=== PATIENT | female | born 1935 | race Caucasian/White ===

== ENCOUNTER 2016-05-15 18:29 | Emergency (ER) | payer MEDICARE, OTHER ==
[~2016-05-15] VITALS: Ht 167.6 cm; Wt 55.0 kg
[2016-05-15 19:38] LABS: HEMATOCRIT 33.5 % (37.0-47.0); HEMOGLOBIN 11.6 g/dl (12.0-16.0); IMMATURE GRANULOCYTES 1.1 % (0.0-1.0); MEAN CELL VOLUME 89.6 fL CALC (80.0-100.0); MEAN CORPUSCULAR HGB CONC 34.6 g/L CALC (32.0-36.0); NEUT# 9.28 thou/uL (2.00-7.15); RED BLOOD COUNT 3.74 mill/uL (4.20-5.60); RED CELL DISTRI WIDTH 12.3 % (11.5-15.5)
[2016-05-15 19:44] LABS: INTERNATIONAL NORMALIZED RATIO 0.9 RATIO (0.7-1.3); PROTHROMBIN TIME 10.1 SECONDS (9.0-12.5)
[2016-05-15 20:00] LABS: URINE BILIRUBIN - DIPSTICK NEGATIVE (NEGATIVE); URINE BLOOD DIPSTICK NEGATIVE (NEGATIVE); URINE CLARITY CLEAR; URINE COLOR YELLOW; URINE GLUCOSE - DIPSTICK NEGATIVE (NEGATIVE); URINE KETONE NEGATIVE (NEGATIVE); URINE LEUK ESTERASE TRACE (NEGATIVE); URINE NITRITE - DIPSTICK NEGATIVE (Negative); URINE PH 5.5 (4.5-8.0); URINE PROTEIN - DIPSTICK NEGATIVE (NEG-TRACE); URINE UROBILINOGEN - DIPSTICK 0.2 E.U./dL (0.2)
[2016-05-15] MEDS ORDERED: AMLODIPINE5 MG PO (20:00)
[2016-05-15] MEDS ORDERED: CALCIUM500 M3 PO (20:01)
[2016-05-15] MEDS ORDERED: ASPIRIN325 MG PO (20:01)
[2016-05-15] MEDS ORDERED: MINIVELLE0.05 MG (20:02)
[2016-05-15] MEDS ORDERED: TRAMADOL HCL50 MG PO (20:02)
[2016-05-15] MEDS ORDERED: CITRUCEL500 MG PO (20:03)
[2016-05-15] MEDS ORDERED: L-LYSINE ACE500 MG PO (20:03)
[2016-05-15] MEDS ORDERED: PROGESTERONE100 MG PO (20:04)
[2016-05-15] MEDS ORDERED: SYMBICORT1 AE1 IN (20:04)
[2016-05-15] MEDS ORDERED: PRED FORTE1 % OP (20:04)
[2016-05-15] MEDS ORDERED: PROAIR HFA IN (20:05)
[2016-05-15] MEDS ORDERED: NEXIUM40 M1 PO (20:06)
[2016-05-15] MEDS ORDERED: ATORVASTATIN CA40 MG PO (20:06)
[2016-05-15] MEDS ORDERED: MULTAQ400 MG PO (20:07)
[2016-05-15] MEDS ORDERED: VALSARTAN40 MG (20:07)
[2016-05-15] MEDS ORDERED: OXYCONTIN10 MG PO (20:08)
[2016-05-15] MEDS ORDERED: ALPRAZOLAM0.25 MG PO (20:10)
[2016-05-15 20:20] LABS: ALBUMIN 4.2 g/dL (3.2-5.0); ALKALINE PHOSPHATASE 72 u/l (38-126); ANION GAP 15 (6-22 (CALC)); BILIRUBIN, TOTAL 0.3 mg/dL (0.0-1.4); BUN 9 mg/dL (8-23); BUN/CREATININE RATIO 10 (12-20 (CALC)); CALCIUM 9.3 mg/dL (8.4-10.2); CARBON DIOXIDE 26 mmol/l (22-30); CHLORIDE 101 mmol/l (95-108); CREATININE 0.9 mg/dL (0.5-1.0); GFR 60 ML/MIN (>=60 (CALC)); GFR FOR AFR.AMER. > 60 ML/MIN (>=60 (CALC)); GLUCOSE 90 mg/dL (82-115); POTASSIUM 3.5 mmol/l (3.5-5.1); SGOT/AST 37 u/l (9-36); SGPT/ALT 38 u/l (11-66); SODIUM 139 mmol/l (137-146); TOTAL PROTEIN 7.6 g/dL (6.3-8.2)
[2016-05-15 21:17] VITALS: BP 182/79
== END 2016-05-15 21:17 ==
LOC: ED 18:29
PROVIDERS: Emergency Medicine
PROC: 0T9B70Z Drainage of Bladder with Drainage Device, Via Natural or Artificial Opening (ICD-10-PCS; principal; 2016-05-15)
DX: S72.002A Fracture of unspecified part of neck of left femur, initial encounter for closed fracture (principal); W01.0XXA Fall on same level from slipping, tripping and stumbling without subsequent striking against object, initial encounter; Y93.E8 Activity, other personal hygiene; Y92.008 Other place in unspecified non-institutional (private) residence as the place of occurrence of the external cause; I10 Essential (primary) hypertension; I48.91 Unspecified atrial fibrillation; R22.32 Localized swelling, mass and lump, left upper limb

== ENCOUNTER 2016-12-16 18:17 | Inpatient (IN) | payer MEDICARE, OTHER ==
[~2016-12-16] VITALS: Ht 167.6 cm; Wt 71.0 kg
[2016-12-16] VITALS (12 sets, daily range): BP systolic 103–156; BP diastolic 43–99
[~2016-12-16 18:17] MED LIST: ALPRAZOLAM0.25 MG PO; AMLODIPINE5 MG PO; ASPIRIN325 MG PO; ATORVASTATIN CA40 MG PO; CALCIUM500 M3 PO; CITRUCEL500 MG PO; L-LYSINE ACE500 MG PO; MINIVELLE0.05 MG; MULTAQ400 MG PO; NEXIUM40 M1 PO; OXYCONTIN10 MG PO; PRED FORTE1 % OS; PROAIR HFA IN; PROGESTERONE100 MG PO; SYMBICORT1 AE1 IN; TRAMADOL HCL50 MG PO; VALSARTAN40 MG PO
[2016-12-16] MEDS ORDERED: XARELTO10 MG PO (18:46)
[2016-12-16] MEDS ORDERED: DALIRESP500 MCG PO (18:47)
[2016-12-16] MEDS ORDERED: DUONEB IN (18:48)
[2016-12-16] MEDS ORDERED: CIPROFLOXACN0.3 % OU (18:50)
[2016-12-16] MEDS ORDERED: MULTI VIT PO (18:53)
[2016-12-16 18:55] LABS: HEMATOCRIT 30.7 % (37.0-47.0); HEMOGLOBIN 13.4 g/dl (12.0-16.0); IMMATURE GRANULOCYTES 0.4 % (0.0-1.0); MEAN CELL VOLUME 96.5 fL CALC (80.0-100.0); MEAN CORPUSCULAR HGB 42.1 pG CALC (26.0-32.0); MEAN CORPUSCULAR HGB CONC 43.6 g/L CALC (32.0-36.0); PLATELET COUNT 346 thou/uL (130-400); RED BLOOD COUNT 3.18 mill/uL (4.20-5.60); RED CELL DISTRI WIDTH 12.6 % (11.5-15.5)
[2016-12-16] MEDS ORDERED: VITAMIN C500 MG PO (18:57)
[2016-12-16] MEDS ORDERED: TYLENOL325 MG PO (18:58)
[2016-12-16] MEDS ORDERED: XALATAN0.005 % OU (19:00)
[2016-12-16 19:07] LABS: MANUAL DIFFERENTIAL YES
[2016-12-16 19:35] LABS: BAND 7 % (0-8)
[2016-12-16 19:45] LABS: URINE BILIRUBIN - DIPSTICK NEGATIVE (NEGATIVE); URINE BLOOD DIPSTICK TRACE-INTACT (NEGATIVE); URINE COLOR YELLOW; URINE GLUCOSE - DIPSTICK NEGATIVE (NEGATIVE); URINE KETONE NEGATIVE (NEGATIVE); URINE LEUK ESTERASE NEGATIVE (NEGATIVE); URINE NITRITE - DIPSTICK NEGATIVE (Negative); URINE PH 5.5 (4.5-8.0); URINE PROTEIN - DIPSTICK 30 mg/dL (NEG-TRACE); URINE UROBILINOGEN - DIPSTICK 0.2 E.U./dL (0.2)
[2016-12-16 19:49] LABS: ALBUMIN 4.5 g/dL (3.2-5.0); ALKALINE PHOSPHATASE 77 u/l (38-126); ANION GAP 17 (6-22 (CALC)); BILIRUBIN, TOTAL 0.6 mg/dL (0.0-1.4); BUN 10 mg/dL (8-23); BUN/CREATININE RATIO 14 (12-20 (CALC)); CALCIUM 9.8 mg/dL (8.4-10.2); CARBON DIOXIDE 26 mmol/l (22-30); CHLORIDE 102 mmol/l (95-108); CREATININE 0.7 mg/dL (0.5-1.0); GFR > 60 ML/MIN (>=60 (CALC)); GFR FOR AFR.AMER. > 60 ML/MIN (>=60 (CALC)); GLUCOSE 105 mg/dL (82-115); POTASSIUM 3.5 mmol/l (3.5-5.1); SGOT/AST 41 u/l (9-36); SGPT/ALT 42 u/l (11-66); SODIUM 142 mmol/l (137-146); TOTAL PROTEIN 8.1 g/dL (6.3-8.2)
[2016-12-16 19:57] LABS: MYOGLOBIN 78 ng/mL (0 - 62)
[2016-12-16 20:22] LABS: URINE CLARITY CLEAR
[2016-12-16 20:24] LABS: URINE MUCUS FEW hpf (NONE-FEW); URINE SQUAMOUS EPITHELIAL CELL FEW EPI/hpf (0-FEW)
[2016-12-17] VITALS (29 sets, daily range): BP systolic 81–164; BP diastolic 46–98
[2016-12-18] VITALS (14 sets, daily range): BP systolic 85–105; BP diastolic 42–55
[2016-12-18 05:16] LABS: HEMATOCRIT 33.8 % (37.0-47.0); HEMOGLOBIN 11.5 g/dl (12.0-16.0); IMMATURE GRANULOCYTES 0.8 % (0.0-1.0); MEAN CELL VOLUME 90.4 fL CALC (80.0-100.0); MEAN CORPUSCULAR HGB 30.7 pG CALC (26.0-32.0); NEUT# 26.25 thou/uL (2.00-7.15); RED BLOOD COUNT 3.74 mill/uL (4.20-5.60); RED CELL DISTRI WIDTH 12.5 % (11.5-15.5)
[2016-12-18 05:29] LABS: ANION GAP 11 (6-22 (CALC)); BUN 24 mg/dL (8-23); BUN/CREATININE RATIO 27 (12-20 (CALC)); CALCIUM 9.4 mg/dL (8.4-10.2); CARBON DIOXIDE 24 mmol/l (22-30); CHLORIDE 98 mmol/l (95-108); CREATININE 0.9 mg/dL (0.5-1.0); GFR 60 ML/MIN (>=60 (CALC)); GFR FOR AFR.AMER. > 60 ML/MIN (>=60 (CALC)); GLUCOSE 143 mg/dL (82-115); POTASSIUM 3.4 mmol/l (3.5-5.1)
[2016-12-18 05:44] LABS: SODIUM 130 mmol/l (137-146)
[2016-12-19] VITALS (14 sets, daily range): BP systolic 97–136; BP diastolic 50–76
[2016-12-19 05:05] LABS: HEMATOCRIT 36.8 % (37.0-47.0); HEMOGLOBIN 12.8 g/dl (12.0-16.0); IMMATURE GRANULOCYTES 0.9 % (0.0-1.0); MEAN CELL VOLUME 94.8 fL CALC (80.0-100.0); MEAN CORPUSCULAR HGB CONC 34.8 g/L CALC (32.0-36.0); PLATELET COUNT 331 thou/uL (130-400); RED BLOOD COUNT 3.88 mill/uL (4.20-5.60)
[2016-12-19 05:10] LABS: MANUAL DIFFERENTIAL YES
[2016-12-19 05:23] LABS: ANION GAP 15 (6-22 (CALC)); BUN 21 mg/dL (8-23); BUN/CREATININE RATIO 27 (12-20 (CALC)); CARBON DIOXIDE 24 mmol/l (22-30); CHLORIDE 105 mmol/l (95-108); CREATININE 0.8 mg/dL (0.5-1.0); GFR > 60 ML/MIN (>=60 (CALC)); GFR FOR AFR.AMER. > 60 ML/MIN (>=60 (CALC)); GLUCOSE 139 mg/dL (82-115); POTASSIUM 3.8 mmol/l (3.5-5.1); SODIUM 139 mmol/l (137-146)
[2016-12-19 08:40] LABS: MAGNESIUM 2.1 mg/dL (1.6-2.3)
== END 2016-12-19 22:50 | DRG 189 ==
LOC: ED 18:17 → ED-I 19:45 → ED 21:12 → MS2 21:13 → ICU 21:13
PROVIDERS: Emergency Medicine; Nurse Practitioner Family; ADMIT Internal Medicine; ATTEND Internal Medicine
DX: J96.21 Acute and chronic respiratory failure with hypoxia (principal); I48.91 Unspecified atrial fibrillation; J43.9 Emphysema, unspecified; J45.901 Unspecified asthma with (acute) exacerbation; I73.9 Peripheral vascular disease, unspecified; M41.9 Scoliosis, unspecified; J47.9 Bronchiectasis, uncomplicated; R00.0 Tachycardia, unspecified; Z79.01 Long term (current) use of anticoagulants; Z79.891 Long term (current) use of opiate analgesic; Z86.73 Personal history of transient ischemic attack (TIA), and cerebral infarction without residual deficits; Z86.718 Personal history of other venous thrombosis and embolism
CPT/HCPCS: G0378; J0692